=== PATIENT | male | born 1970 | race African-American/Black ===

== ENCOUNTER 2023-05-22 08:22 | Day surgery (SDC) | payer BC ==
[2023-05-19 15:20] VITALS: BMI 25.0
[2023-05-22 08:44] VITALS: RESP 16
[2023-05-22 09:35] VITALS: TEMP 97.3
[2023-05-22 09:47] VITALS: BP 108/74; PULSE 67
== END 2023-05-22 10:03 | disposition home or self-care (01) ==
LOC: FASU-ENDO 08:22
PROVIDERS: ATTEND Internal Medicine Gastroenterology
PROC: 0DJD8ZZ Inspection of Lower Intestinal Tract, Via Natural or Artificial Opening Endoscopic (ICD-10-PCS; principal; 2023-05-22 09:06)
DX: Z12.11 Encounter for screening for malignant neoplasm of colon (principal)